=== PATIENT | male | born 1940 | race Caucasian/White ===

== ENCOUNTER 2021-06-22 10:37 | Emergency (ER) | payer MEDICARE ==
[~2021-06-22 10:37] MED LIST: AMIODARONE 150 MG/3 ML VIAL ONE; CALCIUM CHLORIDE 1,000 MG/10 ML DISP.SYRIN ONE; EPINEPHrine SYRINGE 1 MG/10 ML SYRINGE ONE; SODIUM BICARB ADULT 8.4% 50 MEQ/50 ML DISP.SYRIN. ONE
--- NOTE | 2021-06-22 11:02 | PHYS DOC ---
Past Medical History Past Medical History DM2, myasthenia gravis Past Surgical History: Pacemaker Smoking Status: Unknown if ever smoked Social History unknown social history General Adult EDM: Chief Complaint: MEDICAL CODE HPI: HPI: Patient is a 81-year-old male with a history of myasthenia gravis, diabetes type 2, status post pacemaker placement presents to the emergency department with cardiac arrest. Per EMS history, the patient had a witnessed arrest at his home when he fell down. CPR was initially started by a neighbor who witnessed the event. 2 minutes of CPR performed before EMS arrival. EMS continued CPR for approximately 30 minutes in the field. 5 rounds of epinephrine were given, patient was defibrillated 4 times for V. fib. He was also in PEA intermittently. He never had a pulse at any time during EMS contact. And I gel was placed in the field and the patient was bagged easily. Further history is impossible as the patient is in cardiac arrest and family is not immediately available. Review of Systems: Review of Systems: Further ROS is unobtainable secondary to the patient's clinical condition Heart Score: C/O Chest Pain: N/A Family History: Family History: Unknown Physical Exam: PE: General: Unresponsive, appears lifeless Skin: Cool, pale Head: Normocephalic, atraumatic Neck: Supple, trachea midline ENT: No signs of facial trauma, vomitus in airway Eyes: Pupils are 4 mm and nonreactive Cardiovascular: Pulseless, capillary refill is significantly delayed Respiratory: Equal breath sounds bilaterally Gastrointestinal: Soft, morbidly obese abdomen, nondistended Musculoskeletal: No obvious deformity or sign of trauma Neurological: GCS 3, no gag reflex. Radiology/Procedures: Radiology/Procedures: Intubation Procedure Time: 1042 Confirmed: patient, procedure, adjuncts and backup supplies in room. Performed by: self, Ced Gibson DO. Informed consent: not signed due to emergency circumstance. Indication: Acute respiratory failure, airway protection, cardiac arrest. Medications given: None Preparation: oxygenated with 100% oxygen prior to intubation with BVM via Igel, positioning of patient, cardiac monitoring during procedure. Technique: Video laryngoscopy performed with S4 blade, rapid sequence used, 7.0 cuffed tube placed in trachea, secured at 24 cm at the teeth. Confirmation of position: with auscultation of bilateral breath sounds, with ETCO2 capnometry. Findings: cords visualized without difficulty, normal airway, Passed ET tube without difficulty, visualized ET tube going into cords. Procedure tolerated: well. Complications at the time of the procedure: None. Course & Med Decision Making: Course & Med Decision Making Patient arrived via EMS after approximately 30 to 35 minutes of total CPR time with paramedics. Patient as described previously had about 2 minutes of CPR time with bystanders. Patient never regained a pulse in the field. Blood sugar was not obtainable in the field. Patient was placed on her pads, eye gel was replaced with ET tube by me. Patient received CPR per ACLS protocol that was supervised by me with good rate and compression quality. Patient was given 2 A of calcium chloride, received several rounds of epinephrine every 3 minutes, amiodarone, sodium bicarb. Patient had 2 episodes of ventricular fibrillation and was defibrillated. He also had several episodes of PEA. He never had a pulse during any time of the resuscitation. Glucose was over 300. Due to prolonged futility of cardiopulmonary resuscitation and lack of response or signs of ROSC, decision was made to terminate resuscitation and time of was called at 1051. Family arrived in the emergency department after end of resuscitation and I c ounseled them on our ED course, the patient's , and offered my condolences. Er Tech and/or social work assistant was offered. Critical care time was 55 minutes which includes time at bedside, spent in discussion of patient's care with family members present at the bedside, with interpretation of studies and is exclusive of procedures. Departure Departure Impression: Primary Impression: Cardiopulmonary arrest Disposition: 20 (TOD 1051) Condition: CED GIBSON DO Jun 22, 2021 11:02
== END 2021-06-22 16:29 ==
LOC: ER 10:37
DX: I46.9 Cardiac arrest, cause unspecified (principal); E11.9 Type 2 diabetes mellitus without complications; Z95.0 Presence of cardiac pacemaker
CPT/HCPCS: 31500; 82962; 92950; 99291; J0171; J0282; J3490